=== PATIENT | male | born 1955 | race Caucasian/White ===

== ENCOUNTER 2017-08-31 08:32 | Day surgery (SDC) | payer OTHER ==
[2017-08-31] MEDS ORDERED: MIDAZOLAM 1 MG/ML 2 ML INJ ×2 (11:08)
[2017-08-31] MEDS ORDERED: FENTAnyl 50 MCG/ML VIAL (11:09)
== END 2017-08-31 11:37 | disposition home or self-care (01) ==
LOC: GIL 08:32
DX: Z12.11 Encounter for screening for malignant neoplasm of colon (principal); K57.90 Diverticulosis of intestine, part unspecified, without perforation or abscess without bleeding; K64.8 Other hemorrhoids
CPT/HCPCS: 45378

== ENCOUNTER 2017-11-12 09:33 | Day surgery (SDC) | payer OTHER ==
[~2017-11-12 09:33] MED LIST: DEXAMETHASONE 4 MG/ML 1 ML INJ; SUCCINYLCHOLINE CHLORIDE 100 MG/5 ML SYG IV
[2017-11-12] MEDS ORDERED: SOD CHLORIDE 0.9% 1,000 ML IV (12:00)
[2017-11-12] MEDS ORDERED: CEFAZOLIN 1 GM/50 ML (PMX) 50 ML IVPB (12:00)
[2017-11-12] MEDS ORDERED: PROPOFOL 20 ML (13:41)
[2017-11-12] MEDS ORDERED: LIDOCAINE 2% (SDV) 5 ML INJ (13:41)
[2017-11-12] MEDS ORDERED: ROCURONIUM 50 MG INJ (13:41)
[2017-11-12] MEDS ORDERED: MIDAZOLAM 1 MG/ML 2 ML INJ ×2 (13:41→15:06)
[2017-11-12] MEDS ORDERED: ROPIVACAINE 0.2% 20 ML VIAL (13:42)
[2017-11-12] MEDS ORDERED: CEFAZOLIN 1 GM INJ (14:16)
[2017-11-12] MEDS ORDERED: ONDANSETRON 4 MG INJ (14:18)
[2017-11-12] MEDS ORDERED: DEXAMETHASONE 4 MG/ML 1 ML INJ (14:18)
[2017-11-12] MEDS: BUPIVACAINE 0.25% (MPF) 30 ML INJ (14:21)
[2017-11-12] MEDS ORDERED: PHENYLephrine (100 MCG/ML) 5ML SYG (14:26)
[2017-11-12] MEDS ORDERED: LABETALOL HCL 20MG INJ IV (15:00)
[2017-11-12] MEDS ORDERED: SUGAMMADEX SODIUM 200 MG/2 ML VIAL IV (15:29)
[2017-11-12] MEDS: HYDROmorphONE (0.2 MG/ML) 10ML SYG IV ×5 (15:54→16:27)
[2017-11-12] MEDS: ONDANSETRON 4 MG INJ IV (15:55)
[2017-11-12] MEDS ORDERED: HYDROCODONE/APAP (5/325) TAB PO (16:00)
[2017-11-12] MEDS ORDERED: morphine 4 MG/ML VIAL IV (16:00)
[2017-11-12] MEDS: hydrALAzine 20 MG INJ IV (16:05)
[2017-11-12] MEDS: HYDROCODONE/APAP (5/325) TAB PO (17:14)
== END 2017-11-12 18:00 | disposition home or self-care (01) ==
LOC: SDS 09:33
DX: K80.20 Calculus of gallbladder without cholecystitis without obstruction (principal)
CPT/HCPCS: 47562; 88304